=== PATIENT | female | born 1955 | race Caucasian/White ===

== ENCOUNTER 2018-10-06 10:22 | Outpatient (CLI) | payer BC ==
--- NOTE | 2018-10-06 11:53 | MRI ---
EXAM: Left knee MRI without contrast: HISTORY: Internal derangement left knee, left knee pain for 2 weeks without injury COMPARISON: None FINDINGS: Multiplanar, multisequence MRI examination of the knees performed. Moderate joint effusion with distention of the suprapatellar recess as well as a moderate size poplit eal fossa cyst measuring 2.1 x 2.2 x 4.8 cm. No evidence for significant articular cartilage loss Medial meniscus: Complex tear with a flap component involving the posterior horn and posterior body Lateral meniscus: Unremarkable. Anterior cruciate ligament:Intact. Posterior cruciate ligament: Intact. Medial collateral ligament complex: Intact. Lateral collateral ligament complex: Intact. Quadriceps and patellar tendons: Intact. Extensor mechanism: Unremarkable. No evidence for acute osteochondral defect or abnormal marrow signal. IMPRESSION: Abnormal joint effusion including a popliteal fossa cyst which is slightly complicated in appearance. Complex tear medial meniscus.
== END 2018-10-06 10:23 | disposition home or self-care (01) ==
LOC: TBSIIMAG 10:22
PROVIDERS: ATTEND Orthopaedic Surgery
DX: M23.92 Unspecified internal derangement of left knee (principal); M25.462 Effusion, left knee; M71.22 Synovial cyst of popliteal space [Baker], left knee

== ENCOUNTER 2018-12-08 08:05 | Outpatient (CLI) | payer BC ==
[2018-12-08 09:36] LABS: #Eosinphils 0.1 thou/uL (0.0-0.7); #Lymphocytes 1.6 thou/uL (1.20-3.40); #Monocytes 0.3 thou/uL (0.11-0.59); #Neutrophils 2.1 thou/uL (1.40-6.50); %Basophils 0.9 % (0.0-1.0); %Eosinophils 2.6 % (0.0-10.0); %Lymphocytes 37.9 % (21.0-51.0); %Monocytes 8.4 % (0.0-10.0); %Neutrophils 50.2 % (42.0-75.0); Hemoglobin 15.2 g/dL (12.0-16.0); Mean Corpuscular HGB CONC 31.7 g/dL (32.0-36.0); Mean Corpuscular Hemoglobin 27.5 pg (27.0-31.0); Mean Corpuscular Volume 86.7 fL (78.0-98.0); Mean Platelet Volume 7.5 fL (7.4-10.4); Platelet Count 263 thou/uL (130-400); RBC Distribution Width 12.8 % (11.5-14.5); Red Blood Cell (RBC) Count 5.55 mill/uL (4.20-5.40); White Blood Cell (WBC) Count 4.1 thou/uL (4.8-10.8)
[2018-12-08 10:01] LABS: Anion Gap 12 mmol/L (10-20); BUN (Urea Nitrogen) 11 mg/dL (9.8-20.1); Calc. Creatinine Clearance 0 mL/min (70-130); Calcium 9.8 mg/dL (7.8-10.44); Carbon Dioxide 26 mmol/L (23-31); Chloride 105 mmol/L (98-107); Estimated GFR-MDRD 82; Glucose 91 mg/dL (80-115); Potassium 4.5 mmol/L (3.5-5.1); Sodium 138 mmol/L (136-145)
== END 2018-12-08 08:06 | disposition home or self-care (01) ==
LOC: LABBT 08:05
PROVIDERS: ATTEND Orthopaedic Surgery
DX: Z01.818 Encounter for other preprocedural examination (principal); S83.207A Unspecified tear of unspecified meniscus, current injury, left knee, initial encounter
CPT/HCPCS: 80048; 85025; 93005; 93010

== ENCOUNTER 2018-12-17 06:17 | Day surgery (SDC) | payer BC ==
[2018-12-08 08:26] VITALS: BMI 29.9
--- NOTE | 2018-12-16 09:24 | HP ---
HISTORY OF PRESENT ILLNESS: The patient is a 63-year-old female with approximately 6-month history of pain in her left knee, which is worse with ambulation and weightbearing. She has had no specific injury. She was seen by Dr. Reis at [facility] and given a cortisone injection in June, which initially gave good relief, but she has had recurrent symptoms, which is worse with certain motions, and it persisted despite rest, restriction of activities. PAST MEDICAL HISTORY: The patient is otherwise in good health. She has history of hypertension. CURRENT MEDICATIONS: Include amlodipine. ALLERGIES: SHE HAS NO KNOWN ALLERGIES. FAMILY HISTORY: Otherwise, unremarkable. SOCIAL HISTORY: Otherwise, unremarkable. REVIEW OF SYSTEMS: Otherwise, unremarkable. PHYSICAL EXAMINATION: GENERAL: Reveals healthy female. HEENT: Unremarkable. NECK: Supple. CHEST: Clear. HEART: Regular rate and rhythm. ABDOMEN: Soft, nontender. PELVIC, RECTAL, BREASTS: Deferred. EXTREMITIES: Pertinent findings were related to the left knee. There is puffiness. No definite effusion. There is a questionable Wells cyst. There is normal alignment. There is tenderness over the medial joint line. Range of motion is 0 to 135 degrees. There is no instability. There is slight left antalgic gait. NEUROVASCULAR: Intact. DIAGNOSTIC STUDIES: X-rays of the left knee reveal minimal degenerative changes and slight medial joint space narrowing. MRI scan of the left knee reveals a joint effusion, a popliteal cyst, and a complex tear of the medial meniscus. IMPRESSION: Internal derangement of left knee with medial meniscal tear with possible component of degenerative joint disease. PLAN: Arthroscopy of left knee with partial medial meniscectomy and/or debridement and shaving. The nature of the surgery, length of recovery, and potential complications such as infection, loss of motion, incomplete relief, thromboembolic phenomenon, neurovascular injury, posttraumatic degenerative arthritis, recurrent tear, need for additional treatment, and repeat surgery have been discussed in detail. Job ID: [id number]
[2018-12-17] MEDS ORDERED: Bupivacaine HCl 0.5%/Epinephrine 1:200,000/PF 30 ml Vial ONE (08:33)
[2018-12-17] MEDS ORDERED: Fentanyl 100 MCG/2 ML VIAL ONE ×2 (08:46→10:07)
[2018-12-17] MEDS ORDERED: Promethazine HCl 25 MG/ML VIAL ONE (11:33)
--- NOTE | 2018-12-17 11:57 | OP ---
DATE OF PROCEDURE: 12/17/2018 PREOPERATIVE DIAGNOSIS: Medial meniscal tear and early degenerative joint disease, left knee. POSTOPERATIVE DIAGNOSIS: Medial meniscal tear and early degenerative joint disease, left knee. PROCEDURE PERFORMED: Arthroscopy of left knee with partial medial meniscectomy. ANESTHESIA: General. OPERATIVE FINDINGS: Examination of anesthesia revealed the knee to be stable. On arthroscopy, there was mild effusion. 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 Examination of the medial compartment revealed grade 2 and early grade 3 areas weightbearing surface of the medial femoral condyle and a small area of grade 3 area in the medial tibial plateau. There was a flap tear of the posterior horn of the medial meniscus and mild degeneration within the medial meniscus. ACL was intact. Lateral meniscus and lateral compartment were normal. DESCRIPTION OF PROCEDURE: After satisfactory anesthesia was induced in the supine position, the patient was placed in a leg aburto and then prepped and draped in routine sterile fashion. The left leg was elevated and exsanguinated with an Esmarch bandage and the tourniquet was inflated to 300 mmHg. [place] arthroscope was introduced through the anterolateral portal, probed through the anteromedial portal and inflow and outflow accomplished through the scope using a [employer] arthroscopy pump. Arthroscopy was carried out and the above findings were noted. All findings were documented with video printer and hard copies were made. The posterior horn and flap tear of the medial meniscus were debrided with a motorized shaver and the rim balanced and probed and found to be stable. There was still an intact rim of at least 5 mm. A small amount of the tibial plateau and the medial femoral condyle were debrided with a motorized shaver. The scope was then introduced into the anterior medial portal and all compartments visualized. No additional pathology found. The knee was then copiously irrigated through the scope and all instruments were then withdrawn. 20 mL of 0.5% Marcaine with epinephrine was instilled into the knee joint and additional 10 mL injected about the portal sites. Portal sites were closed with 3-0 nylon and a sterile bulky compressive dressing was applied and the tourniquet deflated after 14 minutes. The foot promptly pinked up and the patient was awakened and taken to recovery in stable condition. There were no apparent intraoperative complications. The estimated blood loss was negligible. The patient will be discharged home in satisfactory condition, instructed to ice, elevation, use of crutches, home exercise program by the physical Therapy Department. She was given a prescription for [place] 5 for pain, 24 tablets. She will be rechecked in my office in 7 to 10 days or sooner if there are any problems prior to that time. Job ID: [id number]
[2018-12-17 13:01] VITALS: BP 132/86
[2018-12-17] MEDS ORDERED: Ondansetron PF 4 MG/2 ML Vial ONE (16:14)
[2018-12-17] MEDS ORDERED: PROPOFOL 200 MG/20 ML VIAL ONE (16:14)
[2018-12-17] MEDS ORDERED: Lidocaine 1% PF 5 ML VIAL ONE (16:14)
== END 2018-12-17 12:45 | disposition home or self-care (01) ==
LOC: SDC 06:17
PROVIDERS: ATTEND Orthopaedic Surgery
PROC: 0SBD4ZZ Excision of Left Knee Joint, Percutaneous Endoscopic Approach (ICD-10-PCS; principal; 2018-12-17)
DX: S83.232A Complex tear of medial meniscus, current injury, left knee, initial encounter (principal); M22.42 Chondromalacia patellae, left knee; I10 Essential (primary) hypertension; G47.30 Sleep apnea, unspecified; F41.9 Anxiety disorder, unspecified; Z99.89 Dependence on other enabling machines and devices; Z79.899 Other long term (current) drug therapy
CPT/HCPCS: J0670; J0690; J2001; J2405; J2550; J2704; J3010

== ENCOUNTER 2020-01-29 07:24 | Outpatient (CLI) | payer BC, OTHER ==
[2020-01-29 14:09] LABS: #Eosinphils 0.1 thou/uL (0.0-0.7); #Lymphocytes 1.7 thou/uL (1.20-3.40); #Monocytes 0.3 thou/uL (0.11-0.59); #Neutrophils 2.4 thou/uL (1.40-6.50); %Basophils 0.3 % (0.0-1.0); %Eosinophils 1.9 % (0.0-10.0); %Lymphocytes 36.9 % (21.0-51.0); %Monocytes 7.1 % (0.0-10.0); %Neutrophils 53.8 % (42.0-75.0); Hemoglobin 15.9 g/dL (12.0-16.0); Mean Corpuscular HGB CONC 32.8 g/dL (32.0-36.0); Mean Corpuscular Hemoglobin 28.7 pg (27.0-31.0); Mean Corpuscular Volume 87.5 fL (78.0-98.0); Mean Platelet Volume 7.6 fL (7.4-10.4); Platelet Count 266 thou/uL (130-400); RBC Distribution Width 12.9 % (11.5-14.5); Red Blood Cell (RBC) Count 5.54 mill/uL (4.20-5.40); White Blood Cell (WBC) Count 4.5 thou/uL (4.8-10.8)
[2020-01-29 14:23] LABS: Anion Gap 13 mmol/L (10-20); BUN (Urea Nitrogen) 12 mg/dL (9.8-20.1); Calc. Creatinine Clearance 0 mL/min (70-130); Calcium 9.5 mg/dL (7.8-10.44); Carbon Dioxide 24 mmol/L (23-31); Chloride 103 mmol/L (98-107); Estimated GFR-MDRD 82; Glucose 93 mg/dL (80-115); Potassium 4.1 mmol/L (3.5-5.1); Sodium 136 mmol/L (136-145)
--- NOTE | 2020-01-29 16:47 | EKG ---
Test Reason : Blood Pressure : / mmHG Vent. Rate : 072 BPM Atrial Rate : 072 BPM P-R Int : 176 ms QRS Dur : 086 ms QT Int : 402 ms P-R-T Axes : 049 056 050 degrees QTc Int : 440 ms Normal sinus rhythm Normal ECG No previous ECGs available Confirmed by DR. Paola FOX ([id number]) on 01/29/2020 4:47:07 PM Referred By: ASHIA Confirmed By:DR. Paola FOX
[2020-01-30 14:01] LABS: SARS-CoV-2 MS2 Positive; SARS-CoV-2 N Gene Negative; SARS-CoV-2 S Gene Negative; SARS-CoV-2 by NAA Not Detected (NotDetected); SARS-CoV-2 orf1ab Negative
== END 2020-01-29 07:25 | disposition home or self-care (01) ==
LOC: LABBT 07:24
PROVIDERS: ATTEND Orthopaedic Surgery
DX: Z01.818 Encounter for other preprocedural examination (principal); M23.91 Unspecified internal derangement of right knee; Z20.828 Contact with and (suspected) exposure to other viral communicable diseases
CPT/HCPCS: 80048; 85025; 87635; 93005; 93010; U0003

== ENCOUNTER 2020-02-03 08:27 | Day surgery (SDC) | payer BC ==
[2020-01-29 12:04] VITALS: BMI 31.1
--- NOTE | 2020-02-02 08:41 | HP ---
HISTORY OF PRESENT ILLNESS: The patient is a 64-year-old female with approximately 6-week history of pain in her right knee without specific injury. She has pain, popping and catching sensation which has persisted despite restriction of activities, use of ibuprofen. Her symptoms are very similar to symptoms she had in her left knee prior to arthroscopic meniscectomy 1 year ago. PAST MEDICAL HISTORY: The patient is, otherwise, in good health. She has history of hypertension. CURRENT MEDICATIONS: Include amlodipine, she has been using ibuprofen for current symptoms. PAST SURGICAL HISTORY: She has had a previous cholecystectomy. ALLERGIES: SHE HAS NO KNOWN ALLERGIES. FAMILY HISTORY: Otherwise, unremarkable. SOCIAL HISTORY: Otherwise, unremarkable. REVIEW OF SYSTEMS: Otherwise, unremarkable. PHYSICAL EXAMINATION: GENERAL: Reveals a healthy female. HEENT: Unremarkable. NECK: Supple. CHEST: Clear. HEART: Regular rate and rhythm. ABDOMEN: Soft and nontender. PELVIC: Deferred. RECTAL: Deferred. BREASTS: Deferred. EXTREMITIES: Pertinent findings with the right knee, there is no effusion, there is normal alignment, there is tenderness over the medial joint line. Range of motion is 0 to 125 degrees. There is pain with Josefa maneuver. There is no instability. NEUROVASCULAR: Intact. DIAGNOSTIC STUDIES: X-rays of the knee are essentially normal except perhaps minimal degenerative changes. MRI scan of the right knee reveals probable degenerative medial meniscal tear and some degenerative changes. IMPRESSION: Internal derangement of right knee with probable medial meniscal tear, possible component of degenerative joint disease. PLAN: Arthroscopy of right knee with partial medial meniscectomy and/or debridement and shaving. The nature of the surgery, length of recovery, and potential complications such as infection, loss of motion, incomplete relief, thromboembolic phenomenon, neurovascular injury, posttraumatic degenerative arthritis, recurrent tear, need for additional treatment, or repeat surgery have been discussed in detail. Job ID: [id number]
[2020-02-03] MEDS ORDERED: Ondansetron PF 4 MG/2 ML Vial ONE (10:12)
[2020-02-03] MEDS ORDERED: PROPOFOL 200 MG/20 ML VIAL ONE (10:12)
[2020-02-03] MEDS ORDERED: Dexamethasone 20 MG/5 ML VIAL ONE (10:12)
[2020-02-03] MEDS ORDERED: Ketorolac Tromethamine 30 MG/ML VIAL ONE (10:12)
[2020-02-03] MEDS ORDERED: Lidocaine 1% PF 5 ML VIAL ONE (10:12)
[2020-02-03] MEDS ORDERED: Metoclopramide HCl 10 MG/2 ML VIAL ONE (10:12)
[2020-02-03] MEDS ORDERED: Fentanyl 100 MCG/2 ML VIAL ONE (10:26)
[2020-02-03] MEDS ORDERED: Famotidine/PF 20 mg/2ml Vial ONE (10:26)
[2020-02-03] MEDS ORDERED: Bupivacaine HCl 0.5%/Epinephrine 1:200,000/PF 30 ml Vial ONE (10:29)
--- NOTE | 2020-02-03 15:21 | OP ---
DATE OF PROCEDURE: 02/03/2020 ANESTHESIA: General. PREOPERATIVE DIAGNOSES: 1. Medial meniscal tear. 2. Degenerative joint disease, right knee. POSTOPERATIVE DIAGNOSES: 1. Medial meniscal tear. 2. Degenerative joint disease, right knee. PROCEDURE PERFORMED: Arthroscopy of the right knee with partial medial meniscectomy. OPERATIVE FINDINGS: Examination under anesthesia revealed the knee to be stable. On arthroscopy, there was a moderate effusion and mild synovitis. There was grade 1 and very early grade 2 chondromalacia of the patella. No areas need any shaving. There was a complex degenerative type tear of the posterior horn of the medial meniscus with a flap component. There was grade 2 and early grade 3 changes of the weightbearing surface of the medial femoral condyle and tibia. There may have been some small punctate areas of almost down to bone on the tibia, but no major areas of exposed bone. ACL was intact. Lateral compartment was essentially normal. There was some mild fraying of the free border of the lateral meniscus, but the bulk of meniscus was intact. DESCRIPTION OF PROCEDURE: After satisfactory anesthesia was induced in supine position, the patient was placed in a leg aburto and then prepped and draped in routine manner. The right leg was elevated and exsanguinated with an Esmarch bandage and the tourniquet inflated to 300 mmHg. [place] arthroscope was introduced in the anterolateral portal, put through the anteromedial portal. The inflow and outflow accomplished through the scope using a [employer] arthroscopy pump. Arthroscopy was carried out and the above findings were noted. All findings were documented with video printer and hard copies were made. Posterior horn of the medial meniscus was debrided with use of basket forceps and motorized shaver. The posterior horn was debrided and saucerized and remaining rim probed and found to be stable. There was still an intact rim of 4 to 5 mm. The scope was then introduced into the anteromedial portal and all compartments visualized. No additional pathology found. The knee was copiously irrigated through the scope and all instruments were then withdrawn. 20 mL of 0.5% Marcaine with epinephrine was instilled into the knee joint and additional 10 mL injected about the portal sites. The portal sites were closed with 3-0 nylon and a sterile bulky compressive dressing was applied. The tourniquet deflated after 18 minutes. Foot promptly pinked up. The patient was awakened and taken to recovery room in stable condition. There were no apparent intraoperative complications. The estimated blood loss was negligible. The patient will be discharged home in satisfactory condition, instructed on ice and elevation and given written wound care instructions. She has [place] 5 mg at home for pain. She was instructed on home program of exercise by the Physical Therapy department, use of crutches. She will be rechecked in my office in 10 to 14 days or sooner if there are any problems prior to that time. Job ID: [id number]
== END 2020-02-03 14:02 | disposition home or self-care (01) ==
LOC: SDC 08:27
PROVIDERS: ATTEND Orthopaedic Surgery
PROC: 0SBC4ZZ Excision of Right Knee Joint, Percutaneous Endoscopic Approach (ICD-10-PCS; principal; 2020-02-03)
DX: S83.241A Other tear of medial meniscus, current injury, right knee, initial encounter (principal); M17.11 Unilateral primary osteoarthritis, right knee; I10 Essential (primary) hypertension; Z79.899 Other long term (current) drug therapy
CPT/HCPCS: J0670; J1100; J1885; J2405; J2704; J2765; J3010; S0028